=== PATIENT | female | born 1970 | race Caucasian/White ===

== ENCOUNTER 2018-02-15 23:09 | Emergency (ER) | payer OTHER ==
[~2018-02-15] VITALS: Ht 170.2 cm; Wt 77.1 kg
[~2018-02-15 23:09] MED LIST: LOTREL 5-10 MG1 CAP
[2018-02-16] MEDS ORDERED: NIFEDIPINE ER30 M1 PO (03:27)
== END 2018-02-16 03:40 | disposition home or self-care (01) ==
LOC: ER 23:09
DX: I10 Essential (primary) hypertension (principal)

== ENCOUNTER 2020-06-10 14:55 | Outpatient (CLI) | payer OTHER ==
[~2020-06-10 14:55] MED LIST changes: +NIFEDIPINE ER30 M1 PO
== END 2020-06-10 15:50 | disposition home or self-care (01) ==
LOC: RAD 14:55
PROVIDERS: ATTEND Orthopaedic Surgery
DX: M67.461 Ganglion, right knee (principal); M25.561 Pain in right knee; M25.562 Pain in left knee
CPT/HCPCS: 73721